=== PATIENT | female | born 2000 | race Two or more races ===

== ENCOUNTER 2024-12-18 22:49 | Emergency (ER) | payer MEDICAID, SELFPAY ==
[2024-12-18 22:51] VITALS: BP 167/84; PULSE 110; RESP 19; TEMP 37; O2SAT 93
--- NOTE | 2024-12-18 22:53 | PD.EDALCOH ---
ED Alcohol RME/HPI General Chief Complaint: Alcohol Stated Complaint: ETOH Time Seen by Provider: 12/18/24 22:51 Arrival date/time: 12/18/24 22:49 RME / HPI RME / HPI narrative: Dr. Zamora?s Main ED Evaluation: 24yo female DOMINICK from home presents to the ED for alcohol intoxication. Per EMS, patient got into a verbal altercation with her and tried to leave, but the would not let her because she had been drinking tonight, so she laid on the ground and started crying. Patient states she's had 2 beers tonight. She endorses having a headache. Patient denies any chest pain, shortness of breath or any other associated symptoms. NKA Related Data Previous Rx's ?Medication ?Instructions ?Recorded docusate sodium 100 mg capsule 100 mg PO BID #40 caps 07/22/23 (Colace) hydrocodone 5 mg-acetaminophen 325 1 tab PO Q8H PRN pain (scale score 07/22/23 mg tablet 7-10) #10 tabs ibuprofen 600 mg tablet 600 mg PO Q8H PRN pain (scale 07/22/23 score 4-6) #15 tabs ibuprofen 600 mg tablet 600 mg PO Q6H #30 tabs 08/13/23 Allergies Allergy/AdvReac Type Severity Reaction Status Date / Time No Known Allergies Allergy Verified 07/22/23 03:18 Review of Systems Review of Systems Systems Reviewed: All systems reviewed, normal except as documented Past Medical History Past Medical History NEUROLOGIC: Negative Seizures CARDIAC: Negative Cardiac Disorders or Congestive Heart Failure RESPIRATORY: Negative Chronic Obstructive Pulmonary Disease (COPD) or Asthma GENITOURINARY: Negative Renal Disease ENDOCRINE: Negative Diabetes Mellitus Type 1 or Diabetes Mellitus Type 2 HEMATOLOGIC: Negative Sickle Cell Disease OTHER HISTORY: Negative Blood Transfusions, Blood Transfusion Reaction or Anesthesia Reactions Surgical History SURGICAL: Positive Section; Negative Tubal Ligation Social History SMOKING STATUS: Never smoker SUBSTANCE USE: does not use ED Exam Narrative Physical exam: GENERAL APPEARANCE: alert and oriented x 4, appears intoxicated, well-developed, well-nourished, no acute distress VITALS: All vitals were reviewed and the pulse ox is 96% on room air, which is normal according to my interpretation. HEENT: Normocephalic, atraumatic; pupils equal, round, reactive to light; EOMI; mucous membranes pink, moist; oropharynx clear NECK: Supple LUNGS: CTABL; no wheezes, no rales, no rhonchi HEART: Regular rate, regular rhythm; normal S1, S2; no murmurs ABDOMEN: non distended; normal BS; soft, no tenderness, no guarding, no rebound; no masses, no organomegaly, no hernia BACK: no CVA tenderness EXTREMITIES: atraumatic; no edema NEUROLOGIC: awake; alert and oriented x4; cranial nerves II-XII grossly intact; no focal sensory or motor deficits PSYCHIATRIC: appropriate mood and affect SKIN: warm, dry, normal color; no rashes Course Quality Measures none Orders Category Date Time Status Alcohol, Blood Medical Stat Lab 12/18/24 23:23 Completed Reevaluation(s) Reevaluation #1: Patient is AAOx4 and is ambulating without difficulty. Patient is stable to be discharged home. Time: 04:30 Vital Signs Vital signs: Vital Signs Temperature 98.6 F 12/18/24 22:51 Pulse Rate 110 H 12/18/24 22:51 Respiratory Rate 19 12/18/24 22:51 Blood Pressure 167/84 H 12/18/24 22:51 Pulse Oximetry (%) 93 L 12/18/24 22:51 Oxygen Delivery Method Room Air 12/18/24 22:51 Discharge Plan Plan Patient Disposition: HOME (Self Care) Prescriptions/Referrals Prescriptions/Med Rec: No Action ibuprofen 600 mg tablet 600 mg PO Q6H Qty: 30 0RF docusate sodium [Colace] 100 mg capsule 100 mg PO BID Qty: 40 0RF ibuprofen 600 mg tablet 600 mg PO Q8H PRN (Reason: pain (scale score 4-6)) Qty: 15 0RF hydrocodone-acetaminophen 5-325 mg tablet 1 tab PO Q8H MDD 3 PRN (Reason: pain (scale score 7-10)) Qty: 10 0RF Referrals: Serge Kiser MD [Primary Care Provider] - In 1 week Problem List Clinical Impression: Alcohol intoxication Patient/Caregiver Discharge Instructions Education Materials: ED Alcohol Intoxication Print Language: Lithuanian Stand Alone Forms: Jessica Award Info., Patient Portal Info Letter Alcohol MDM Narrative MDM Narrative: Scribe Attestation: 12/18/24 Deirdre Jo am scribing for and in the presence of Dr. Zamora. Patient data External records reviewed:: [facility] previous records (Per chart review, patient was seen here on 08/13/23 for abdominal pain.) and EMS form Clinical information provided by:: patient and EMS Social determinants that could affect healthcare access:: alcohol use Patient has the following chronic illnesses:: none How is presenting disease/condition affected by chronic disease/condition?: no chronic disease Evaluation data The following diagnostics were reviewed and interpreted by me:: lab results Lab and/or radiology exams considered but not ordered:: none Interpretation Summary: Blood Alcohol is 285.6. Medications / Prescriptions Medications or Prescriptions considered but not ordered:: none Medication administrations:: none Consultations Consultation(s) initiated? (list below): No Diagnosis Differential diagnosis alcohol: alcohol intoxication and other (drug intoxication, polysubstance use) Most likely diagnosis given after review of the tests above:: see clinical impression below Admission Indicated Admission indicated?: not indicated Admission Request Was there a request for admission?: No Disposition Plan Disposition Plan: Discharge Discharge Attestation Discharge Attestation: The patient and all family members were given an opportunity to ask questions and understood the discharge instructions. Discharge instructions specifically effects, indications for sooner follow up or return to the emergency department, and the expected course of current diagnosis. Patient condition: Stable
[2024-12-18 23:05] VITALS: PULSE 120; RESP 16; O2SAT 98; BMI 30.7
[2024-12-18 23:30] VITALS: BP 116/71; PULSE 78; RESP 20; O2SAT 95
[2024-12-18 23:36] VITALS: BP 116/71; PULSE 120; RESP 20; O2SAT 95
[2024-12-18 23:59] LABS: Alcohol, Blood Medical 285.6 mg/dL (0-10.0)
--- NOTE | 2024-12-19 02:45 | PC.NURSE ---
ATTEMPTED TO CALL CONTACTS ON FILE PER MD CISNEROS, UNSUCCESSFUL AT THIS TIME.
[2024-12-19 02:53] VITALS: BP 120/75; PULSE 74; RESP 17; TEMP 36.9; O2SAT 96
--- NOTE | 2024-12-19 05:08 | PC.NURSE ---
PATIENT HAS BEEN DISCHARGED, WAITING FOR A RIDE
== END 2024-12-19 08:20 | disposition home or self-care (01) ==
PROVIDERS: Emergency Provider Emergency Medicine; PCP Family Medicine
DX: F10.929 Alcohol use, unspecified with intoxication, unspecified (principal); Y90.8 Blood alcohol level of 240 mg/100 ml or more; Z63.0 Problems in relationship with spouse or partner
CPT/HCPCS: 36415; 80320; 99283; G0480

== ENCOUNTER → 2025-03-05 | Outpatient (CLI) | payer MEDICAID, SELFPAY ==
--- NOTE | 2025-03-05 13:00 | XR_ITS ---
Examination: CT left knee, without contrast. 2-D sagittal reconstructions. 2-D coronal reconstructions. 3-D reconstructions. Date and time of exam:March 05, 2025 1308 hours INDICATIONS: Diagnosis traumatic arthropathy, onset knee pain beginning one month ago CTDI: vol (mGy):7.78 DLP: (mGycm):200 Technique: Multiple 1.25 mm axial sections of the left knee without intravenous contrast have been obtained. 2-D sagittal and coronal reconstructions have been obtained. 3-D reconstructions have been obtained. Low dose protocols were performed. One or more of the following dose reduction techniques were used; automated exposure control, adjustment of the mA and/or KV according to patient size, use of iterative reconstruction technique. Findings: There is lateral subluxation of the patella at least 9 mm Small old bone fragment adjacent to the medial margin of the patella, which can be seen with prior complete dislocation of the patella Moderate narrowing medial joint space No acute fracture No ossified joint body IMPRESSION: Lateral subluxation of the patella at least 9 mm No acute fracture Consider MRI knee without contrast follow-up to assess for tear of the medial patellar retinaculum
== END | disposition home or self-care (01) ==
PROVIDERS: PCP Internal Medicine; Referring Provider Internal Medicine; Visit Provider Internal Medicine
DX: S83.012A Lateral subluxation of left patella, initial encounter (principal); X58.XXXA Exposure to other specified factors, initial encounter
CPT/HCPCS: 73700

== ENCOUNTER 2025-05-30 00:44 | Emergency (ER) | payer MEDICAID, SELFPAY ==
[2025-05-30 01:00] VITALS: BP 138/80; PULSE 115; RESP 18; TEMP 36.6; O2SAT 99
[2025-05-30] MEDS: FAMOTIDINE 20 MG TABLET PO (01:14)
[2025-05-30] MEDS: MethylPREDNISolone SOD SUCC 62.5 MG/ML 2ML VIAL 125 MG IM (01:14)
--- NOTE | 2025-05-30 02:00 | PD.EDALLER ---
ED Allergic Reaction RME/HPI General Chief complaint: Ear Stated complaint: LEFT EAR SWELLING, BURNING, AND ITCHING Time Seen by Provider: 05/30/25 00:59 Arrival date/time: 05/30/25 00:44 24F with no significant PMH presents to ED with 2 hours of L ear swelling, burning, and itching after she ate some chicken. Patient denies SOB and difficulty swallowing. Patient also denies trauma/fall. Limitations: no limitations Related Data Previous Rx's ?Medication ?Instructions ?Recorded docusate sodium 100 mg capsule 100 mg PO BID #40 caps 07/22/23 (Colace) hydrocodone 5 mg-acetaminophen 325 1 tab PO Q8H PRN pain (scale score 07/22/23 mg tablet 7-10) #10 tabs ibuprofen 600 mg tablet 600 mg PO Q8H PRN pain (scale 07/22/23 score 4-6) #15 tabs ibuprofen 600 mg tablet 600 mg PO Q6H #30 tabs 08/13/23 Allergies Allergy/AdvReac Type Severity Reaction Status Date / Time No Known Allergies Allergy Verified 05/30/25 00:45 Review of Systems Review of Systems Systems Reviewed: All systems reviewed, normal except as documented Integumentary/Breasts Skin/Breast: Reports as per HPI, Reports pruritus and Reports rash Past Medical History Past Medical History NEUROLOGIC: Negative Seizures CARDIAC: Negative Cardiac Disorders or Congestive Heart Failure RESPIRATORY: Negative Chronic Obstructive Pulmonary Disease (COPD) or Asthma GENITOURINARY: Negative Renal Disease ENDOCRINE: Negative Diabetes Mellitus Type 1 or Diabetes Mellitus Type 2 HEMATOLOGIC: Negative Sickle Cell Disease OTHER HISTORY: Negative Blood Transfusions, Blood Transfusion Reaction or Anesthesia Reactions Surgical History SURGICAL: Positive Section; Negative Tubal Ligation Social History SMOKING STATUS: Never smoker SUBSTANCE USE: does not use ED Exam General Limitations: Present no limitations General appearance: Present alert and in no apparent distress Head Head exam: Present atraumatic ENT ENT exam: Present mucous membranes moist Expanded ENT Exam External ear exam: Present external tenderness (L ear redness, swelling, and tenderness) Neck Neck exam: Present normal inspection, full ROM and trachea midline Chest Chest inspection: Present normal inspection and symmetric chest wall rise Neurological Exam Neurological exam: Present alert and oriented X3 Psychiatric Psychiatric exam: Present normal affect and normal mood Skin Skin exam: Present warm, dry, intact and normal color Course Quality Measures none Orders Category Date Time Status DiphenhydrAMINE [Benadryl] Med 05/30/25 01:00 Discontinued 25 mg PO X1 ONE Famotidine [Pepcid] Med 05/30/25 01:00 Discontinued 20 mg PO X1 ONE MethylPREDNISolone.* [SoluMEDROL Inj] Med 05/30/25 01:00 Discontinued 125 mg IM X1 ONE Vital Signs Vital signs: Vital Signs Temperature 98 F 05/30/25 01:00 Pulse Rate 115 H 05/30/25 01:00 Respiratory Rate 18 05/30/25 01:00 Blood Pressure 138/80 H 05/30/25 01:00 Pulse Oximetry (%) 99 05/30/25 01:00 Oxygen Delivery Method Room Air 05/30/25 01:00 O2 at 99% on RA and WNLs Allergic Reaction MDM Narrative MDM Narrative:: 24F with no significant PMH presents to ED with 2 hours of L ear swelling, burning, and itching after she ate some chicken. Patient denies SOB and difficulty swallowing. Patient also denies trauma/fall. Physical exam reveals L swelling, redness, and bruising. Normal WOB. Patient is afebrile, calm, and alert. Patient eloped after receiving meds. Patient data External records reviewed:: [facility] previous records Clinical information provided by:: patient Social determinants that could affect healthcare access:: none Patient has the following chronic illnesses:: none How is presenting disease/condition affected by chronic disease/condition?: no chronic disease Evaluation data The following diagnostics were reviewed and interpreted by me:: other (specify) (none) Lab and/or radiology exams considered but not ordered:: not ordered Interpretation Summary: n/a Medications / Prescriptions Medications or Prescriptions considered but not ordered:: ordered Medication administrations:: Medication Administration History Discontinued Medications Diphenhydramine HCl (Diphenhydramine 25 Mg Capsule) 25 mg PO X1 ONE Stop: 05/30/25 01:01 Last Admin: 05/30/25 01:14 Dose: 25 mg Documented By: BD Famotidine (Famotidine 20 Mg Tablet) 20 mg PO X1 ONE Stop: 05/30/25 01:01 Last Admin: 05/30/25 01:14 Dose: 20 mg Documented By: BD Methylprednisolone Sodium Succinate (Methylprednisolone Sod Succ 62.5 Mg/Ml 2ml Vial) 125 mg IM X1 ONE Stop: 05/30/25 01:01 Last Admin: 05/30/25 01:14 Dose: 125 mg Documented By: BD above Consultations Consultation(s) initiated? (list below): No Diagnosis Differential Diagnosis allergic reaction: anaphylaxis, allergic reaction, angioedema, contact dermatitis, adverse reaction to drug, viral enanthem, urticaria and other (skin swelling) Most likely diagnosis given after review of the tests above:: skin swelling Admission Indicated Admission indicated?: not indicated Admission Request Was there a request for admission?: No Disposition Plan Disposition Plan: other (specify) (eloped) Discharge Plan Plan Patient Disposition: Elopement Prescriptions/Referrals Prescriptions/Med Rec: No Action ibuprofen 600 mg tablet 600 mg PO Q6H Qty: 30 0RF docusate sodium [Colace] 100 mg capsule 100 mg PO BID Qty: 40 0RF ibuprofen 600 mg tablet 600 mg PO Q8H PRN (Reason: pain (scale score 4-6)) Qty: 15 0RF hydrocodone-acetaminophen 5-325 mg tablet 1 tab PO Q8H MDD 3 PRN (Reason: pain (scale score 7-10)) Qty: 10 0RF Referrals: Serge Kiser MD [Primary Care Provider, Family Practice] - In 1 week Problem List Clinical Impression: Swelling of skin Patient/Caregiver Discharge Instructions Print Language: Chinese YADI Supervising Physician OTILIO/KYRA Supervising Physician: Dr. Mendez
== END 2025-05-30 02:58 | disposition left against medical advice (07) ==
PROVIDERS: Emergency Provider Emergency Medicine; PCP Family Medicine
DX: H93.8X2 Other specified disorders of left ear (principal)
CPT/HCPCS: 96372; 99282; J2919; A9270